=== PATIENT | male | born 1980 | race Caucasian/White ===

== ENCOUNTER → 2019-06-17 | Day surgery (SDC) | payer BC ==
[~2019-06-17] MED LIST: IV RINGERS,LACTATED 1000ML 1,000 ML IV SCH; LIDOCAINE 1% PF 2 ML VIAL. ID PRN; MIDAZOLAM HCL/PF 2 MG/2 ML VIAL. IV PRN; PROPOFOL 20 ML IV ONE; fentaNYL PF VIAL 100 MCG/2 ML VIAL IV PRN
[2019-06-17 09:29] VITALS: BP 118/83
== END ==
LOC: ENDOS 07:27
PROVIDERS: ATTEND Internal Medicine Gastroenterology
DX: K64.0 First degree hemorrhoids (principal); K63.89 Other specified diseases of intestine; F15.90 Other stimulant use, unspecified, uncomplicated; Z72.89 Other problems related to lifestyle; Z87.891 Personal history of nicotine dependence
CPT/HCPCS: 45378; J2704

== ENCOUNTER 2021-02-20 12:46 | Day surgery (SDC) | payer OTHER ==
[~2021-02-20 12:46] MED LIST changes: +HYDROmorphone 2 MG/ML VIAL IVP PRN; -LIDOCAINE 1% PF 2 ML VIAL. ID PRN; -MIDAZOLAM HCL/PF 2 MG/2 ML VIAL. IV PRN; +MORPHINE SULFATE 2 MG/ML VIAL. IVP PRN; -PROPOFOL 20 ML IV ONE; -fentaNYL PF VIAL 100 MCG/2 ML VIAL IV PRN; +fentaNYL PF VIAL 100 MCG/2 ML VIAL IVP PRN
[2021-02-20] MEDS ORDERED: ONDANSETRON PF 4 MG/2 ML VIAL. ONE (14:16)
[2021-02-20] MEDS ORDERED: MIDAZOLAM HCL/PF 2 MG/2 ML VIAL. ONE (14:16)
[2021-02-20] MEDS ORDERED: PROPOFOL 10 MG/ML (20ML) VIAL. IV ONE ×2 (14:16→15:54)
[2021-02-20] MEDS ORDERED: DEXAMETHASONE SOD PHOS 4 MG/ML VIAL ONE (14:16)
[2021-02-20] MEDS ORDERED: LIDOCAINE 2% PF 5 ML VIAL. ONE (14:16)
[2021-02-20] MEDS ORDERED: OXYMETAZOLINE 0.05% NASAL SPRAY 30ML BOTTLE. NS ONE (14:46)
[2021-02-20] MEDS ORDERED: LIDOCAINE 1%/EPI 1:100,000 20 ML VIAL. ONE (14:47)
[2021-02-20] MEDS ORDERED: GELATIN SPONGE SIZE 100. ONE (14:47)
[2021-02-20] MEDS ORDERED: fentaNYL PF VIAL 100 MCG/2 ML VIAL ONE ×2 (15:14→16:29)
[2021-02-20] MEDS ORDERED: SEVOFLURANE 61 TO 120 MINUTES. IH ONE (15:20)
[2021-02-20] MEDS: fentaNYL PF VIAL 100 MCG/2 ML VIAL IVP PRN ×4 (16:31→17:20)
[2021-02-20] MEDS ORDERED: PROCHLORPERAZINE 10 MG/2 ML VIAL. ONE (16:33)
[2021-02-20] MEDS: PROCHLORPERAZINE 10 MG/2 ML VIAL. IVP PRN ×2 (16:35→17:10)
[2021-02-20] MEDS ORDERED: TRAM50TA PO (16:38)
[2021-02-20] MEDS ORDERED: traMADol 50 MG TABLET PO ONE (17:00)
[2021-02-20 17:26] VITALS: BP 139/88
--- NOTE | 2021-02-21 15:39 | OP ---
DATE OF SURGERY: 02/20/2021 PREOPERATIVE DIAGNOSES: Nasal obstruction from deviated nasal septum and inferior turbinate hypertrophy. POSTOPERATIVE DIAGNOSES: Nasal obstruction from deviated nasal septum and inferior turbinate hypertrophy. PROCEDURE PERFORMED: Nasal septoplasty and reduction of inferior nasal turbinates with radiofrequency. INDICATIONS FOR THE PROCEDURE: Nasal obstruction. ESTIMATED BLOOD LOSS: 30 mL. ANESTHESIA: General anesthetic. DESCRIPTION OF PROCEDURE: The patient was brought to the operating room and placed on the operating room table in the supine position and given a general anesthetic when he was safely intubated and vital signs were stable. His nose was decongested with topical application of Afrin, after which his face was then prepped and draped after sterile fashion. Nose was then examined; and preoperatively, he has a significant septal deviation into the left side of his nose that has folded upon itself and then crosses over the midline into the right side in the superior portion. The inferior turbinate on the right side is enlarged. The inferior turbinate on the left side is compressed by the septal deviation. After decongesting his nose, the septum was infiltrated with 1% lidocaine with epinephrine, after which a curvilinear incision was made along the mucocutaneous border in the left side of the nose and dissection was carried out beneath the mucoperichondrium and periosteum, isolating the twisted portion of the septum. It was noted on the left side that by making an incision through the cartilage, it the cartilage from the premaxillary crest and allowed movement to the midline allowing more freedom with dissection of the mucous membrane from off the surface of the septum. Careful dissection and separation of the mucous membrane on the left side was accomplished over the first one-third of the nasal septum and then crossover incision was made allowing greater mobilization of the septum. This allowed greater elevation of the mucous membrane for the extent of the septum. After this was accomplished, then it was noted that selective removal of the bony portion of the vomer bone and the perpendicular plate of the ethmoid could be accomplished relieving the posterior obstruction from the twisted portion of the septum. Attention given then to the anterior portion and it was noted that by making an intercartilaginous incision, the inferior 10% of the septum could be mobilized and its twisted portion then removed giving more freedom of manipulation of the upper portion of the septum. Then, by scoring and partially excising the septum, more of a perpendicular position could be obtained. It was noted that when this was accomplished, the septum became midline structure without any influence to maintain that position. More careful release of attached soft tissues then allowed the septum to become more stabilized in the midline position. After this was completed, the mucous membrane, that had been elevated, was reapproximated using plain suture and then the incision was closed using 3-0 plain suture. The septum then became more midline. The mucous membranes were then reapproximated to the remaining portion of the septum using a quilting type suture pattern. The inferior turbinate then was more freely accessed on each side. In the left side, the turbinate was hypoplastic and lacked large swelling of mucous membrane. This was very selectively treated with the application of radiofrequency energy using a radiofrequency wand. On the right side, more hypertrophic mucous membrane was present. This was then injected with saline to give it more body and then it was reduced using radiofrequency using a Coblation wand. The nasopharynx and nasal cavity were suctioned throughout the procedure to remove mucus and bleeding from the procedure. At the conclusion, no active bleeding was occurring with midline positioning of the septum. The nose was then braced on each side with placement of Gelfoam and the procedure was completed. The patient was recovered from his anesthesia and taken to recovery room in stable condition. NAYELI GARCIA DO DR: Denisse JOB#: [id number] / [id number]
== END 2021-02-20 17:51 | disposition home or self-care (01) ==
LOC: SURG 12:46
PROVIDERS: ATTEND Otolaryngology
DX: J34.89 Other specified disorders of nose and nasal sinuses (principal); J34.2 Deviated nasal septum; J34.3 Hypertrophy of nasal turbinates; M19.90 Unspecified osteoarthritis, unspecified site; Z87.891 Personal history of nicotine dependence; Z79.899 Other long term (current) drug therapy; Z98.890 Other specified postprocedural states
CPT/HCPCS: 30520; 30802; A4930; J0780; J1100; J2250; J2405; J2704; J3010; J3490; A4657

== ENCOUNTER → 2021-03-06 | Outpatient (CLI) | payer OTHER ==
[2021-02-20 17:26] VITALS: BP 139/88
[~2021-03-06] MED LIST changes: -HYDROmorphone 2 MG/ML VIAL IVP PRN; -IV RINGERS,LACTATED 1000ML 1,000 ML IV SCH; -MORPHINE SULFATE 2 MG/ML VIAL. IVP PRN; +TRAM50TA PO; -fentaNYL PF VIAL 100 MCG/2 ML VIAL IVP PRN
--- NOTE | 2021-03-06 14:56 | KCIC ---
Examination: MRI of the left knee without contrast HISTORY: History of left lateral knee pain COMPARISON: None available TECHNIQUE: Multiplanar, multisequence MR imaging of the left knee was performed without contrast. FINDINGS: Anterior, posterior cruciate ligament appears intact. The medial meniscus, lateral meniscus appears i ntact. The medial collateral ligament appears intact. Lateral collateral complex including the fibula r collateral ligament, biceps femoris tendon, popliteus tendon appears intact. The extensor mechanism appears intact. The medial, lateral retinaculum appears intact. Small knee joint effusion. There is mild increased T2 signal identified in the soft tissue identified deep to the iliotibial ban d. IMPRESSION: 1. Mild increased T2 signal identified in the soft tissue identified deep to the iliotibial band pro bably iliotibial band syndrome.. 2. Small knee joint effusion. Electronically signed by: Al Gallego MD (03/06/2021 2:54 PM) [id number]
== END ==
LOC: KCIC MRI 13:41
PROVIDERS: ATTEND Physician Assistant Medical
DX: M25.462 Effusion, left knee (principal)
CPT/HCPCS: 73721

== ENCOUNTER → 2021-11-28 | Outpatient (CLI) | payer OTHER ==
[~2021-11-28] MED LIST changes: +GADOTERATE 5 MMOL/10ML VIAL. IVP ONE
--- NOTE | 2021-11-28 16:32 | KCIC ---
EXAM: Brain and internal auditory canal MRI with and without contrast. HISTORY: Vertigo. Tinnitus. Headaches. TECHNIQUE: Multiplanar, multisequence magnetic resonance imaging of the brain and internal auditory c anals was performed prior to and following the administration of intravenous contrast. COMPARISON: None. FINDINGS: There is no restricted diffusion to suggest acute or subacute infarction. There is no mass effect or midline shift. There is no hydrocephalus. There are tiny foci of signal change within the f rontal white matter. The orbits are unremarkable. The paranasal sinuses mastoid air cells are clear. There are normal flow voids within the cerebral vessels. There is no hemorrhage. The cerebellopontine angles, vestibulocochlear nerves, facial nerves and membranous labyrinths are un remarkable. No suspicious enhancing lesion is seen. IMPRESSION: 1. No acute intracranial finding. 2. Tiny foci of signal change within the frontal white matter. The differential includes changes due to chronic small vessel disease and chronic migraine headaches. Given the patient age, the possibilit y of a tiny focus of chronic demyelination is not completely excluded. 3. Unremarkable internal auditory canals. Electronically signed by: Ne Sneed MD (11/28/2021 4:30 PM) [id number]
== END ==
LOC: KCIC MRI 14:50
PROVIDERS: ATTEND Physician Assistant
DX: R42 Dizziness and giddiness (principal); R51.9 Headache, unspecified; H93.13 Tinnitus, bilateral
CPT/HCPCS: 70553

== ENCOUNTER 2022-01-30 08:53 | Outpatient (CLI) | payer OTHER ==
[~2022-01-30 08:53] MED LIST changes: -GADOTERATE 5 MMOL/10ML VIAL. IVP ONE
[2022-01-30] MEDS ORDERED: LIDOCAINE 1% Multi-Dose 20 ML VIAL. INJ ONE (09:00)
[2022-01-30 09:55] VITALS: BP 132/91
[2022-01-30 10:31] LABS: CSF CLARITY CLEAR; CSF COLOR COLORLESS; CSF RBC COUNT 10 /cmm (Not Established); CSF WBC COUNT 1 /cmm (Not Established)
[2022-01-30 10:48] LABS: CSF PROTEIN 40.6 mg/dL (15.0-45.0)
--- NOTE | 2022-01-30 10:53 | RAD ---
PROCEDURE: Lumbar puncture for CSF collection. INDICATION: Headaches, evaluate for MS COMPARISONS: None. PROCEDURE DETAILS: Performing physician: Robin Puente DO Fluoro time: 0.4min Fluoro dose: 2.2 mGy Patient was monitored at all times by attending physician and interventional radiology nursing staff. The procedure, including risks, benefits and potential complications were explained to the patient in detail. Potential complications include, but are not exclusive to pain, bleeding, infection and CSF leak. The patient stated they understood the procedure. Both written and verbal consent were obtained ; the written consent was placed in the patient's chart. The patient was placed in a prone position on the fluoroscopy table with standard sterile preparatio n performed. A timeout was performed according to departmental protocol. Under fluoroscopic guidance , the L2-L3 level was localized. Approximately 3 mL of 1% lidocaine solution was administered for l ocal anesthetic. Under fluoroscopic guidance, a 20-gauge 3-1/2 inch spinal needle was carefully advan angela. Clear CSF was returned. Approximately 11 mL of clear CSF were collected and divided into 4 sterile vials. The vials was were labeled and sent to the laboratory for analysis. The needle was removed with the stylet in place. The patient's back was cleansed with alcohol and a B and-Aid placed over the puncture site. The patient tolerated the procedure well without local complic ations. The patient left the fluoroscopy suite in stable condition. Fluoroscopy time was approximately: 0.4 min, 2.2, mGy; 1 fluoroscopic images were saved. IMPRESSION: 1. Successful fluoroscopic guided lumbar puncture. 2. 11 cc of CSF drained and delivered to lab for analysis. Electronically signed by: Robin Puente DO (01/30/2022 10:50 AM) [id number]
[2022-01-30 10:54] VITALS: BP 119/88
--- NOTE | 2022-01-30 11:02 | NUR ---
Lumbar puncture care after form provided to patient. No problems when patient got up and went to the restroom. Directed patient and his to outpatient elevators.
[2022-02-02 15:20] LABS: ALBUMIN,CSF 31 mg/dL (10-45); ALBUMIN,SERUM 4.7 g/dL (4.0-5.0); CSF IGG INDEX 0.5 (0.0-0.7); IGG,SERUM 968 mg/dL (603-1613)
== END 2022-01-30 11:05 | disposition home or self-care (01) ==
LOC: RAD 08:53
PROVIDERS: ATTEND Nurse Practitioner Family
DX: R51.9 Headache, unspecified (principal); G35 Multiple sclerosis; M19.90 Unspecified osteoarthritis, unspecified site; Z87.891 Personal history of nicotine dependence; Z79.899 Other long term (current) drug therapy; Z98.890 Other specified postprocedural states
CPT/HCPCS: 36415; 62270; 62328; 82787; 82945; 83916; 84157; 87075; 89051

== ENCOUNTER → 2022-03-15 | Outpatient (CLI) | payer OTHER ==
--- NOTE | 2022-03-15 17:22 | KCIC ---
EXAM: MRI LEFT LOWER EXTREMITY W/O 03/15/2022 3:25 PM CLINICAL INDICATION: Left foot neuroma. Frederic-type feeling in ball of foot along third, fourth, and fifth MTP joints COMPARISON: Left foot radiograph 10/24/2021 TECHNIQUE: Multiplanar multisequence MR images of the left forefoot without contrast FINDINGS: There is minimal fluid in the first through third intermetatarsal space. Mild edema in the third intermetatarsal space extending slightly proximally between the metatarsals. Minimal edema in the fourth intermetatarsal space There is no discrete mass identified. Mild degenerative joint diseas e of the great toe MTP joint with small subchondral cysts. No acute fracture. Marrow signal is normal . Muscles, and distal flexor intact. Subcutaneous soft tissues normal. IMPRESSION: Mild edema in the third intermetatarsal space and extending proximally between the metat arsals. Minimal edema in the fourth intermetatarsal space. No discrete mass identified. Electronically signed by: Yas Moreno MD (03/15/2022 5:20 PM) [facility]
== END ==
LOC: KCIC MRI 15:11
PROVIDERS: ATTEND Podiatrist
DX: M19.072 Primary osteoarthritis, left ankle and foot (principal); M77.42 Metatarsalgia, left foot
CPT/HCPCS: 73718